=== PATIENT | male | born 1995 | race Two or more races ===

== ENCOUNTER → 2017-10-22 | Outpatient (CLI) | payer OTHER | END | disposition home or self-care (01) | LOC: PPHC 08:00 → PPH VACUNA 08:57 | DX: Z23 Encounter for immunization (principal) ==

== ENCOUNTER 2018-04-18 08:53 | Outpatient (CLI) | payer OTHER | END 2018-04-18 12:51 | disposition home or self-care (01) | LOC: LAB 08:53 | DX: E78.4 Other hyperlipidemia (principal); E05.30 Thyrotoxicosis from ectopic thyroid tissue without thyrotoxic crisis or storm; I10 Essential (primary) hypertension ==